=== PATIENT | female | born 1965 | race Two or more races ===

== ENCOUNTER 2018-05-03 15:42 | Emergency (ER) | payer OTHER ==
[~2018-05-03] VITALS: Ht 162.6 cm; Wt 99.8 kg
[2018-05-03] MEDS ORDERED: CEPHALEXIN500 M1 (21:21)
[2018-05-03] MEDS ORDERED: CLINDAMYCIN HC300 MG PO (21:28)
[2018-05-03] MEDS ORDERED: ZOFRAN ODT4 MG SL (21:28)
[2018-05-03] MEDS ORDERED: ULTRACET PO (21:28)
[2018-05-03] MEDS ORDERED: INTESTINEX680 M1 PO (21:28)
== END 2018-05-03 21:36 | disposition home or self-care (01) ==
LOC: ER 15:42
DX: L02.211 Cutaneous abscess of abdominal wall (principal); M25.531 Pain in right wrist

== ENCOUNTER 2018-05-07 21:15 | Emergency (ER) | payer OTHER ==
[~2018-05-07] VITALS: Ht 162.6 cm; Wt 99.8 kg
[~2018-05-07 21:15] MED LIST: CEPHALEXIN500 M1; CLINDAMYCIN HC300 MG PO; INTESTINEX680 M1 PO; ULTRACET PO; ZOFRAN ODT4 MG SL
[2018-05-07] MEDS ORDERED: COZAAR100 MG (22:17)
[2018-05-07] MEDS ORDERED: HUMULIN R500 UNIT/2 (22:17)
[2018-05-07] MEDS ORDERED: DILTIAZEM ER120 MG (22:17)
[2018-05-07] MEDS ORDERED: FISH OIL CONC1000 MG (22:18)
== END 2018-05-07 23:11 | disposition home or self-care (01) ==
LOC: ER 21:15
DX: L02.211 Cutaneous abscess of abdominal wall (principal)

== ENCOUNTER 2018-05-18 20:02 | Emergency (ER) | payer OTHER ==
[~2018-05-18] VITALS: Ht 162.6 cm; Wt 99.8 kg
[~2018-05-18 20:02] MED LIST changes: +COZAAR100 MG; +DILTIAZEM ER120 MG; +FISH OIL CONC1000 MG; +HUMULIN R500 UNIT/2
== END 2018-05-18 20:52 | disposition home or self-care (01) ==
LOC: ER 20:02
DX: L02.211 Cutaneous abscess of abdominal wall (principal)

== ENCOUNTER 2019-12-09 16:35 | Emergency (ER) | payer OTHER ==
[~2019-12-09] VITALS: Ht 165.1 cm; Wt 99.8 kg
[2019-12-10] MEDS ORDERED: PROTONIX20 MG PO (15:25)
[2019-12-10] MEDS ORDERED: PEPCID AC20 MG PO (15:25)
[2019-12-10] MEDS ORDERED: ZOFRAN8 MG PO (15:28)
== END 2019-12-10 15:53 | disposition home or self-care (01) ==
LOC: ER 16:35
DX: N18.9 Chronic kidney disease, unspecified (principal); K29.60 Other gastritis without bleeding; Z20.828 Contact with and (suspected) exposure to other viral communicable diseases

== ENCOUNTER 2020-09-01 08:32 | Emergency (ER) | payer OTHER ==
[~2020-09-01] VITALS: Ht 162.6 cm; Wt 104.3 kg
[~2020-09-01 08:32] MED LIST changes: +PEPCID AC20 MG PO; +PROTONIX20 MG PO; +ZOFRAN8 MG PO
[2020-09-01] MEDS ORDERED: DILTIAZEM ER90 MG (08:52)
[2020-09-01] MEDS ORDERED: NORFLEX100MG PO (14:05)
== END 2020-09-01 14:14 | disposition home or self-care (01) ==
LOC: ER 08:32
DX: M54.2 Cervicalgia (principal); R10.13 Epigastric pain

== ENCOUNTER 2020-09-20 16:03 | Emergency (ER) | payer OTHER ==
[~2020-09-20] VITALS: Ht 162.6 cm; Wt 104.3 kg
[~2020-09-20 16:03] MED LIST changes: +DILTIAZEM ER90 MG; +NORFLEX100MG PO
[2020-09-20] MEDS ORDERED: LYRICA50 MG PO (16:33)
[2020-09-20] MEDS ORDERED: OMEPRAZOLE40 MG PO (16:33)
[2020-09-20] MEDS ORDERED: LYRICA100 MG PO (16:33)
[2020-09-20] MEDS ORDERED: TORADOL60 MG IM (17:20)
== END 2020-09-20 18:13 | disposition home or self-care (01) ==
LOC: ER 16:03
DX: M25.562 Pain in left knee (principal)

== ENCOUNTER 2021-01-20 22:38 | Emergency (ER) | payer OTHER ==
[~2021-01-20] VITALS: Ht 162.6 cm; Wt 108.9 kg
[~2021-01-20 22:38] MED LIST changes: +LYRICA100 MG PO; +LYRICA50 MG PO; +OMEPRAZOLE40 MG PO; +TORADOL60 MG IM
[2021-01-21] MEDS ORDERED: GRALISE600 MG PO (02:01)
== END 2021-01-21 02:05 ==
LOC: ER 22:38
DX: M25.511 Pain in right shoulder (principal); I10 Essential (primary) hypertension; E11.9 Type 2 diabetes mellitus without complications

== ENCOUNTER 2021-07-14 17:48 | Emergency (ER) | payer OTHER ==
[~2021-07-14] VITALS: Ht 162.6 cm; Wt 108.9 kg
[~2021-07-14 17:48] MED LIST changes: +GRALISE600 MG PO
[2021-07-14] MEDS ORDERED: ZITHROMAX500 MG PO (20:07)
[2021-07-14] MEDS ORDERED: TUSNEL LIQUID178 ML PO (20:07)
[2021-07-14] MEDS ORDERED: ZYRTEC10 MG PO (20:07)
[2021-07-14] MEDS ORDERED: XOPENEX0.63 MG/3 IH (20:07)
== END 2021-07-14 20:28 | disposition home or self-care (01) ==
LOC: ER 17:48
DX: J06.9 Acute upper respiratory infection, unspecified (principal); Z88.6 Allergy status to analgesic agent

== ENCOUNTER 2021-08-16 16:00 | Emergency (ER) | payer OTHER ==
[~2021-08-16] VITALS: Ht 162.6 cm; Wt 108.9 kg
[~2021-08-16 16:00] MED LIST changes: +TUSNEL LIQUID178 ML PO; +XOPENEX0.63 MG/3 IH; +ZITHROMAX500 MG PO; +ZYRTEC10 MG PO
[2021-08-16] MEDS ORDERED: PEPCID AC20 MG PO (18:56)
== END 2021-08-16 21:26 | disposition home or self-care (01) ==
LOC: ER 16:00
DX: K29.70 Gastritis, unspecified, without bleeding (principal); E11.9 Type 2 diabetes mellitus without complications; Z79.4 Long term (current) use of insulin; Z88.6 Allergy status to analgesic agent; Z20.822 Contact with and (suspected) exposure to COVID-19

== ENCOUNTER 2022-04-09 14:51 | Emergency (ER) | payer OTHER ==
[~2022-04-09] VITALS: Ht 162.6 cm; Wt 104.3 kg
[2022-04-09] MEDS ORDERED: PAMELOR10 MG PO (15:28)
== END 2022-04-09 19:46 | disposition home or self-care (01) ==
LOC: ER 14:51
DX: S79.812A Other specified injuries of left hip, initial encounter (principal); S34.21XA Injury of nerve root of lumbar spine, initial encounter; X58.XXXA Exposure to other specified factors, initial encounter; Y93.89 Activity, other specified; Y92.89 Other specified places as the place of occurrence of the external cause; Y99.9 Unspecified external cause status; Z88.6 Allergy status to analgesic agent; E11.9 Type 2 diabetes mellitus without complications; Z79.4 Long term (current) use of insulin; E03.9 Hypothyroidism, unspecified

== ENCOUNTER 2022-07-11 22:35 | Emergency (ER) | payer OTHER ==
[~2022-07-11] VITALS: Ht 165.1 cm; Wt 104.3 kg
[~2022-07-11 22:35] MED LIST changes: +PAMELOR10 MG PO
[2022-07-11] MEDS ORDERED: PROZAC10 M1 PO (23:19)
[2022-07-11] MEDS ORDERED: LIPITOR40 MG PO (23:20)
[2022-07-11] MEDS ORDERED: ACETAMINOPHEN-CO5 ML PO (23:20)
[2022-07-11] MEDS ORDERED: ACTOS30 MG PO (23:20)
== END 2022-07-12 02:46 | disposition home or self-care (01) ==
LOC: ER 22:35
DX: J10.1 Influenza due to other identified influenza virus with other respiratory manifestations (principal); K29.60 Other gastritis without bleeding; G44.89 Other headache syndrome; R11.10 Vomiting, unspecified; Z20.822 Contact with and (suspected) exposure to COVID-19; Z88.6 Allergy status to analgesic agent

== ENCOUNTER 2022-09-25 13:14 | Emergency (ER) | payer OTHER ==
[~2022-09-25] VITALS: Ht 165.1 cm; Wt 95.3 kg
[~2022-09-25 13:14] MED LIST changes: +ACETAMINOPHEN-CO5 ML PO; +ACTOS30 MG PO; +LIPITOR40 MG PO; +PROZAC10 M1 PO
[2022-09-25] MEDS ORDERED: PYRIDIUM DS200 MG PO (17:36)
[2022-09-25] MEDS ORDERED: CEFPODOXIME PR200 MG PO (17:36)
== END 2022-09-25 18:10 | disposition home or self-care (01) ==
LOC: ER 13:14
DX: N30.90 Cystitis, unspecified without hematuria (principal)

== ENCOUNTER 2023-03-08 19:19 | Emergency (ER) | payer OTHER ==
[~2023-03-08] VITALS: Ht 162.6 cm; Wt 108.9 kg
[~2023-03-08 19:19] MED LIST changes: +CEFPODOXIME PR200 MG PO; +PYRIDIUM DS200 MG PO
[2023-03-08 21:35] LABS: HEMATOCRIT 35.4 % (36.0-45.00); HEMOGLOBIN 11.6 g/dL (12.0-15.00); MEAN CELL VOLUME 93.3 fL (80.00-100.00); MEAN CORPUSCULAR HEMOGLOBIN 30.6 pg (27.00-32.0); MEAN CORPUSCULAR HGB CONC 32.8 g/dl (32.0-36.0); PLATELET COUNT 272 K/uL (150-450); RED CELL DISTRIBUTION WIDTH 14.4 % (11.5-14.5)
== END 2023-03-09 00:28 | disposition home or self-care (01) ==
LOC: ER 19:20
DX: R60.9 Edema, unspecified (principal); J45.991 Cough variant asthma; Z20.822 Contact with and (suspected) exposure to COVID-19

== ENCOUNTER → 2023-05-22 | Emergency (ER) | payer OTHER ==
[~2023-05-22] VITALS: Ht 165.1 cm; Wt 108.0 kg
[~2023-05-22] MED LIST changes: +HUMULIN R500 UNIT/2 SQ; +PEPCID AC10 MG; +ZETIA10 MG PO
== END | disposition left against medical advice (07) ==
LOC: ER 18:55
DX: Z53.21 Procedure and treatment not carried out due to patient leaving prior to being seen by health care provider (principal)

== ENCOUNTER 2023-11-25 21:30 | Emergency (ER) | payer OTHER ==
[~2023-11-25] VITALS: Ht 167.6 cm; Wt 111.1 kg
[~2023-11-25 21:30] MED LIST changes: +ONDANSETRON ODT8 MG PO
[2023-11-25] MEDS ORDERED: ONDANSETRON HCL 2 MG/ML VIAL IV ONE (22:30)
[2023-11-25] MEDS ORDERED: 0.9 % SODIUM CHLORIDE 1,000 ML IV ONE (22:30)
[2023-11-25] MEDS ORDERED: ONDANSETRON HCL 2 MG/ML VIAL ONE (23:26)
[2023-11-25] MEDS ORDERED: DEXTROSE 50 % IN WATER 0.5 G/ML DISP.SYRIN IV ONE (23:46)
[2023-11-25] MEDS ORDERED: ACETAMINOPHEN 500 MG GEL..CAP PO ONE (23:52)
[2023-11-26 00:04] LABS: HEMATOCRIT 36.5 % (36.0-45.00); HEMOGLOBIN 12.3 g/dL (12.0-15.00); MEAN CELL VOLUME 91.2 fL (80.00-100.00); MEAN CORPUSCULAR HEMOGLOBIN 30.7 pg (27.00-32.0); MEAN CORPUSCULAR HGB CONC 33.6 g/dl (32.0-36.0); PLATELET COUNT 287 K/uL (150-450); RED CELL DISTRIBUTION WIDTH 13.7 % (11.5-14.5)
[2023-11-26 00:38] LABS: ALBUMIN 3.4 gm/dL (3.4-5.0); BILIRUBIN TOTAL 0.2 mg/dL (0.3-1.2); CALCIUM 9.3 mg/dL (8.5-10.1); CREATININE SERUM 0.81 mg/dL (0.55-1.02); GFR 73.14; POTASSIUM 3.62 mEq/L (3.5-5.1); TOTAL PROTEIN 7.4 gm/dL (6.4-8.2)
[2023-11-26] MEDS ORDERED: METOCLOPRAMIDE HCL 5 MG/ML VIAL IM STA (03:31)
[2023-11-26] MEDS ORDERED: METOCLOPRAMIDE HCL 5 MG/ML VIAL ONE (03:38)
== END 2023-11-26 03:42 | disposition home or self-care (01) ==
LOC: ER 21:32
PROVIDERS: General Practice
DX: E10.43 Type 1 diabetes mellitus with diabetic autonomic (poly)neuropathy (principal); K31.84 Gastroparesis; Z79.4 Long term (current) use of insulin; I10 Essential (primary) hypertension; Z88.6 Allergy status to analgesic agent; Z87.09 Personal history of other diseases of the respiratory system; Z20.822 Contact with and (suspected) exposure to COVID-19

== ENCOUNTER 2024-03-08 19:14 | Emergency (ER) | payer OTHER ==
[~2024-03-08] VITALS: Ht 167.6 cm; Wt 108.9 kg
[2024-03-08] MEDS ORDERED: WELLBUTRIN XL300 MG PO (19:48)
[2024-03-08] MEDS ORDERED: BUTALB-ASPIRIN1 EACH (19:48)
[2024-03-08] MEDS ORDERED: MELOXICAM15 MG (19:49)
[2024-03-08] MEDS ORDERED: HYSINGLA ER20 MG (19:49)
[2024-03-08] MEDS ORDERED: MONTELUKAST SODI4 M1 PO (19:49)
[2024-03-08 19:50] VITALS: BP 139/75; O2SAT 96
[2024-03-08] MEDS ORDERED: FAMOTIDINE/PF 20 MG in 0.9 % SODIUM CHLORIDE 8 ML IV PUSH STA (20:07)
[2024-03-08] MEDS ORDERED: METOCLOPRAMIDE HCL 10 MG in DEXTROSE 5 % IN WATER 50 ML IV ONE (20:15)
[2024-03-08] MEDS ORDERED: HYOSCYAMINE SULFATE 0.125 MG TAB.SUBL SL ONE (20:15)
[2024-03-08] MEDS ORDERED: 0.9 % SODIUM CHLORIDE 1,000 ML IV SCH (20:15)
[2024-03-08] MEDS ORDERED: MEPERIDINE HCL/PF 50 MG/ML VIAL IM ONE (20:30)
[2024-03-08 20:42] LABS: HEMATOCRIT 36.5 % (36.0-45.00); HEMOGLOBIN 12.2 g/dL (12.0-15.00); MEAN CELL VOLUME 91.6 fL (80.00-100.00); MEAN CORPUSCULAR HEMOGLOBIN 30.5 pg (27.00-32.0); MEAN CORPUSCULAR HGB CONC 33.3 g/dl (32.0-36.0); PLATELET COUNT 278 K/uL (150-450); RED BLOOD COUNT 3.98 M/uL (4.00-6.00); RED CELL DISTRIBUTION WIDTH 14.1 % (11.5-14.5)
[2024-03-08 21:06] LABS: ALBUMIN 3.7 gm/dL (3.4-5.0); BILIRUBIN TOTAL 0.25 mg/dL (0.3-1.2); CALCIUM 9.1 mg/dL (8.5-10.1); CREATININE SERUM 0.78 mg/dL (0.55-1.02); GFR 76.4; GLOBULINA 3.9 G/DL (2.4-3.5); POTASSIUM 3.7 mEq/L (3.5-5.1); TOTAL PROTEIN 7.6 gm/dL (6.4-8.2)
== END 2024-03-08 23:21 | disposition home or self-care (01) ==
LOC: ER 19:16
PROVIDERS: General Practice
DX: K52.89 Other specified noninfective gastroenteritis and colitis (principal); Z88.6 Allergy status to analgesic agent; Z20.822 Contact with and (suspected) exposure to COVID-19

== ENCOUNTER 2024-05-10 15:27 | Emergency (ER) | payer OTHER ==
[~2024-05-10] VITALS: Ht 167.6 cm; Wt 108.0 kg
[~2024-05-10 15:27] MED LIST changes: +BUTALB-ASPIRIN1 EACH; +HYSINGLA ER20 MG; +MELOXICAM15 MG; +MONTELUKAST SODI4 M1 PO; +WELLBUTRIN XL300 MG PO
[2024-05-10] MEDS ORDERED: DILTIAZEM 24HR240 MG PO (16:08)
[2024-05-10] MEDS ORDERED: PANTOPRAZOLE SODIUM 40 MG in 0.9 % SODIUM CHLORIDE 8 ML IV PUSH STA (16:29)
[2024-05-10] MEDS ORDERED: METHYLPREDNISOLONE SOD SUCC 125 MG VIAL IV ONE (16:30)
[2024-05-10] MEDS ORDERED: ONDANSETRON HCL 2 MG/ML VIAL IV ONE (16:30)
[2024-05-10] MEDS ORDERED: 0.9 % SODIUM CHLORIDE 1,000 ML IV SCH (16:30)
[2024-05-10] MEDS ORDERED: MEPERIDINE HCL/PF 50 MG/ML VIAL IM ONE (16:45)
[2024-05-10 17:20] LABS: HEMATOCRIT 41.1 % (36.0-45.00); HEMOGLOBIN 13.7 g/dL (12.0-15.00); MEAN CELL VOLUME 90.9 fL (80.00-100.00); MEAN CORPUSCULAR HEMOGLOBIN 30.4 pg (27.00-32.0); MEAN CORPUSCULAR HGB CONC 33.4 g/dl (32.0-36.0); PLATELET COUNT 245 K/uL (150-450); RED BLOOD COUNT 4.52 M/uL (4.00-6.00); RED CELL DISTRIBUTION WIDTH 14.8 % (11.5-14.5)
[2024-05-10 17:44] LABS: ALBUMIN 3.3 gm/dL (3.4-5.0); BILIRUBIN TOTAL 0.45 mg/dL (0.3-1.2); CALCIUM 8.8 mg/dL (8.5-10.1); CREATININE SERUM 0.77 mg/dL (0.55-1.02); GFR 77.54; GLOBULINA 3.7 G/DL (2.4-3.5); POTASSIUM 4.18 mEq/L (3.5-5.1)
[2024-05-10] MEDS ORDERED: METHYLPREDNISOLONE SOD SUCC 125 MG VIAL ONE (17:51)
[2024-05-10] MEDS ORDERED: ONDANSETRON HCL 2 MG/ML VIAL ONE (17:51)
[2024-05-10] MEDS ORDERED: LEVSIN/SL0.125 MG SL (20:27)
== END 2024-05-10 20:36 | disposition home or self-care (01) ==
LOC: ER 15:30
PROVIDERS: General Practice
DX: R10.32 Left lower quadrant pain (principal); Z88.6 Allergy status to analgesic agent

== ENCOUNTER 2024-06-16 21:22 | Emergency (ER) | payer OTHER ==
[~2024-06-16] VITALS: Ht 170.2 cm; Wt 108.0 kg
[~2024-06-16 21:22] MED LIST changes: +DILTIAZEM 24HR240 MG PO; +LEVSIN/SL0.125 MG SL
[2024-06-17] MEDS ORDERED: ORPHENADRINE CITRATE 30 MG/ML AMPUL IM STA (00:26)
[2024-06-17] MEDS ORDERED: KETOROLAC TROMETHAMINE 60 MG VIAL IM STA (00:26)
[2024-06-17] MEDS ORDERED: NORFLEX100MG PO (00:32)
[2024-06-17] MEDS ORDERED: MELOXICAM15 MG PO (00:32)
== END 2024-06-17 01:05 ==
LOC: ER 21:23
DX: M79.7 Fibromyalgia (principal); I10 Essential (primary) hypertension; Z79.4 Long term (current) use of insulin; E11.9 Type 2 diabetes mellitus without complications